=== PATIENT | female | born 1945 | race Caucasian/White ===

== ENCOUNTER 2016-11-27 08:04 | Observation (INO) | payer OTHER ==
[~2016-11-27] VITALS: Ht 152.4 cm; Wt 91.8 kg
[~2016-11-27 08:04] MED LIST: ACARBOSE50 MG; ACARBOSE50 MG PO; ASPIRIN325 MG PO; CARVEDILOL25 MG; CARVEDILOL25 MG PO; CIPRO500 MG PO; COREG25 M1 PO; DAILY VALUE1 EACH PO; FEXOFENADINE H180 MG PO; FUROSEMIDE40 MG; FUROSEMIDE40 MG PO; GLIPIZIDE10 MG; GLUCOTROL10 MG PO; LEVEMIR FL100 UNIT/1 SC; LEVOTHYROXINE150 MCG PO; LEVOTHYROXINE175 MCG PO; LISINOPRIL20 MG PO; MELOXICAM15 MG PO; METFORMIN HCL1000 MG PO; METFORMIN HCL500 MG PO; MIRALAX255 GM PO; NITROSTAT0.4 MG; NITROSTAT0.4 MG SL; OMEPRAZOLE20 MG PO; PLAVIX75 MG PO; PRAVASTATIN SOD40 MG PO; PRAVASTATIN SOD80 MG; PRECOSE50 MG PO; PROBIOTIC1 EAC2 PO; SERTRALINE HCL100 MG PO; TYLENOL WITH C1 EACH PO; ZESTRIL30 MG PO; ZOLOFT100 MG PO
[2016-11-27 08:58] LABS: EOSINOPHIL COUNT 0.1 K/uL (0-0.3); HEMATOCRIT 35.5 % (36.0-46.0); IMMATURE GRANULOCYTE (%) 0.3 % (0.0-0.7); INSTRUMENT ABS NEUTROPHIL CT 3.8 K/uL; LYMPHOCYTE COUNT 1.9 K/uL (1.0-2.8); MCHC 32.1 G/DL (30.0-36.0); MCV 84.1 FL (83-99); MEAN PLAT.VOLUME 10.8 uM^3 (9.5-12.4); MONOCYTE (%) 10.7 % (3-12); MONOCYTE COUNT 0.7 K/uL (0-0.8); NEUTROPHIL COUNT 3.8 K/uL (1.8-6.4); PLATELET COUNT 173 K/uL (156-360); RBC DIS.WIDTH-CV 12.9 % (11.8-14.6); RBC DIS.WIDTH-SD 38.9 % (39-53); RED BLOOD COUNT 4.22 M/uL (3.80-5.20); WHITE BLOOD COUNT 6.6 K/uL (4.1-10.2)
[2016-11-27 09:06] LABS: CHLORIDE 105 mEq/L (99-109); POTASSIUM 4.2 mEq/L (3.7-5.4); SODIUM 140 mEq/L (136-147)
[2016-11-27 09:08] LABS: GLUCOSE 183 mg/dL (70-99)
[2016-11-27 09:09] LABS: ANION GAP 11 MEQ/L (2-14)
[2016-11-27 09:10] LABS: TOTAL BILIRUBIN 0.4 mg/dL (0.0-1.0)
[2016-11-27 09:11] LABS: ALKALINE PHOSPHATASE 101 IU/L (3-129)
[2016-11-27 09:12] LABS: GFR ESTIMATE (CALCULATED) 58 mL/min/
[2016-11-27 09:13] LABS: UREA NITROGEN (BUN) 18 mg/dL (9-23)
[2016-11-27 10:18] LABS: ADD MIUA? NO; BILIRUBIN NEGATIVE; BLOOD NEGATIVE; COLOR YELLOW ((YELLOW)); GLUCOSE (STRIP) NEGATIVE; KETONES NEGATIVE; LEUKOCYTES NEGATIVE; NITRITE NEGATIVE; PROTEIN (STRIP) NEGATIVE; UROBILINOGEN 0.2 MG/DL (0.2-1.0)
[2016-11-27 11:23] LABS: UCUL ADDED? NO
[2016-11-27] MEDS ORDERED: GLUCOTROL XL10 MG PO (12:54)
[2016-11-27] MEDS ORDERED: TRULICITY0.75 MG/0. SC (12:58)
[2016-11-27] MEDS ORDERED: LEVEMIR FL100 UNIT/1 SC ×2 (12:58)
[2016-11-27] MEDS ORDERED: ZITHROMAX250 MG PO (12:59)
[2016-11-27] MEDS ORDERED: XYLOCAINE VISC100 ML PO (13:01)
[2016-11-27 13:37] LABS: Estimated Average Glucose 186 mg/dL (70-123); HDL CHOLESTEROL 44 MG/DL (Desirable>=50); HEMOGLOBIN A1c (GLYCOHEMOGLOB) 8.1 % HGB (Below 5.7); LDL CHOLESTEROL 92 mg/dL (Desirable<100); NON-HDL CHOLESTEROL 121 mg/dL (Desirable<160); TOTAL CHOLESTEROL 165 mg/dL (Desirable<200); TRIGLYCERIDES 145 MG/DL (Normal: <150)
[2016-11-27 14:32] VITALS: BP 179/81
[2016-11-27 17:48] LABS: POINT-OF-CARE METER ID UU13113700
[2016-11-27 20:00] VITALS: BP 145/69
[2016-11-27 21:28] LABS: POINT-OF-CARE METER ID UU13113831
[2016-11-27 23:06] VITALS: BP 140/92
[2016-11-28 03:25] VITALS: BP 129/60
[2016-11-28 06:09] LABS: HEMATOCRIT 35.9 % (36.0-46.0); MCH 27.1 PG (29.0-34.0); MCHC 31.8 G/DL (30.0-36.0); MCV 85.3 FL (83-99); MEAN PLAT.VOLUME 11.4 uM^3 (9.5-12.4); NRBC (%) 0.3 /100 WBC (0-0); PLATELET COUNT 191 K/uL (156-360); RBC DIS.WIDTH-CV 12.8 % (11.8-14.6); RBC DIS.WIDTH-SD 39.5 % (39-53); RED BLOOD COUNT 4.21 M/uL (3.80-5.20); WHITE BLOOD COUNT 5.9 K/uL (4.1-10.2)
[2016-11-28 06:27] LABS: ALKALINE PHOSPHATASE 88 IU/L (3-129); ANION GAP 9 MEQ/L (2-14); CHLORIDE 99 MEQ/L (99-109); GFR ESTIMATE (CALCULATED) 58 mL/min/; GLUCOSE 176 mg/dL (70-99); POTASSIUM 4.2 MEQ/L (3.7-5.4); SAMPLE HEMOLYSIS CHECK 0; SAMPLE ICTERIC CHECK 0; SAMPLE LIPEMIA CHECK 0; SODIUM 137 MEQ/L (136-147); TOTAL BILIRUBIN 0.4 MG/DL (0.0-1.0); UREA NITROGEN (BUN) 20 mg/dL (9-23)
[2016-11-28 06:31] LABS: POINT-OF-CARE METER ID UU14162513
[2016-11-28 07:04] VITALS: BP 157/67
[2016-11-28 11:06] VITALS: BP 154/67
[2016-11-28 12:34] LABS: POINT-OF-CARE METER ID UU13113700
[2016-11-28 15:12] VITALS: BP 145/62
[2016-11-28 17:26] LABS: POINT-OF-CARE METER ID UU14162513
== END 2016-11-28 18:19 | disposition home or self-care (01) ==
LOC: EME 08:04 → 5WEST 12:30 → EDOF 12:30 → ENRESERV 12:35 → 5WEST 14:22
PROVIDERS: Emergency Medicine; Hospitalist
DX: G45.4 Transient global amnesia (principal); I65.23 Occlusion and stenosis of bilateral carotid arteries; E11.9 Type 2 diabetes mellitus without complications; I10 Essential (primary) hypertension; E78.5 Hyperlipidemia, unspecified; I42.0 Dilated cardiomyopathy; I44.7 Left bundle-branch block, unspecified; I35.0 Nonrheumatic aortic (valve) stenosis; Z95.810 Presence of automatic (implantable) cardiac defibrillator; Z96.653 Presence of artificial knee joint, bilateral; E03.9 Hypothyroidism, unspecified; Z79.84 Long term (current) use of oral hypoglycemic drugs; Z88.0 Allergy status to penicillin; Z88.5 Allergy status to narcotic agent
CPT/HCPCS: 70450; 70498; 80053; 80061; 81003; 82948; 83036; 85025; 85027; 93005; 93306; 93880; G0378; J1650; J1815

== ENCOUNTER 2016-12-02 22:26 | Inpatient (IN) | payer OTHER ==
[~2016-12-02] VITALS: Ht 152.4 cm; Wt 86.3 kg
[~2016-12-02 22:26] MED LIST changes: +GLUCOTROL XL10 MG PO; +TRULICITY0.75 MG/0. SC; +XYLOCAINE VISC100 ML PO; +ZITHROMAX250 MG PO
[2016-12-03 13:46] LABS: POINT-OF-CARE METER ID UU14174212
[2016-12-03 13:54] VITALS: BP 178/78
[2016-12-03 14:17] VITALS: BP 178/78
[2016-12-03 18:40] LABS: POINT-OF-CARE METER ID UU13113675
[2016-12-03 20:20] VITALS: BP 120/74
[2016-12-03 20:46] LABS: POINT-OF-CARE METER ID UU14174217
[2016-12-03 21:00] VITALS: BP 136/48
[2016-12-03 21:40] LABS: METH RESISTANT S AUREUS PCR NEGATIVE (NEGATIVE)
[2016-12-03 21:41] LABS: PROBE CHECK PASS; SPECIMEN PROCESSING CONTROL PASS
[2016-12-03 22:00] VITALS: BP 128/76
[2016-12-03 23:00] VITALS: BP 102/38
[2016-12-04] VITALS (23 sets, daily range): BP systolic 90–191; BP diastolic 52–100
[2016-12-04 08:17] LABS: POINT-OF-CARE METER ID UU14174217
[2016-12-04] MEDS ORDERED: HYDROCODON-ACE1 EAC7 PO (08:38)
[2016-12-04 12:42] LABS: POINT-OF-CARE METER ID UU14174217
[2016-12-04 17:36] LABS: POINT-OF-CARE METER ID UU14314082
[2016-12-04 23:46] LABS: POINT-OF-CARE METER ID UU14162636
[2016-12-05 00:30] VITALS: BP 144/55
[2016-12-05 02:00] VITALS: BP 143/48
[2016-12-05 04:00] VITALS: BP 129/46
[2016-12-05 08:00] VITALS: BP 145/75
[2016-12-05 08:34] LABS: POINT-OF-CARE METER ID UU13113748
[2016-12-05 13:00] VITALS: BP 137/55
== END 2016-12-05 16:55 | disposition home or self-care (01) | DRG 39 ==
LOC: ENRESERV 22:26 → SDC 12-03 09:08 → EDSTATUS 12-03 09:09 → 2SOUTH 12-03 09:09 → 4WEST 12-03 13:05 → 2SOUTH 12-03 13:05 → ENRESERV 12-03 18:20 → 4WEST 12-03 20:01 → ENRESERV 12-04 05:53 → CANRESERV 12-04 05:53 → 4WEST 12-04 16:32
PROVIDERS: Surgery
PROC: 03CK0ZZ Extirpation of Matter from Right Internal Carotid Artery, Open Approach (ICD-10-PCS; principal; 2016-12-03)
DX: I65.23 Occlusion and stenosis of bilateral carotid arteries (principal); E11.9 Type 2 diabetes mellitus without complications; I10 Essential (primary) hypertension; E78.5 Hyperlipidemia, unspecified; I25.5 Ischemic cardiomyopathy; E03.9 Hypothyroidism, unspecified; Z95.810 Presence of automatic (implantable) cardiac defibrillator; Z86.73 Personal history of transient ischemic attack (TIA), and cerebral infarction without residual deficits; Z83.3 Family history of diabetes mellitus; Z80.7 Family history of other malignant neoplasms of lymphoid, hematopoietic and related tissues
CPT/HCPCS: 70450; 82948; 87641; 93005; 94010; 94760; 94799; 99202; J0131; J0360; J0690; J1170; J1644; J1650; J1815; J2405; J2720; J2765; J2795; J3010; J7120

== ENCOUNTER 2016-12-11 10:35 | Emergency (ER) | payer OTHER ==
[~2016-12-11] VITALS: Ht 152.4 cm; Wt 89.4 kg
[~2016-12-11 10:35] MED LIST changes: +HYDROCODON-ACE1 EAC7 PO
[2016-12-11 11:23] LABS: ADD MIUA? NO; BILIRUBIN NEGATIVE; BLOOD NEGATIVE; COLOR STRAW ((YELLOW)); GLUCOSE (STRIP) NEGATIVE; KETONES NEGATIVE; LEUKOCYTES NEGATIVE; NITRITE NEGATIVE; PROTEIN (STRIP) NEGATIVE; SPECIFIC GRAVITY 1.006 (1.000-1.030); UCUL ADDED? NO; UROBILINOGEN 0.2 MG/DL (0.2-1.0)
[2016-12-11] MEDS ORDERED: TRESIBA FL200 UNIT/1 SC (12:12)
[2016-12-11] MEDS ORDERED: TRULICITY0.75 MG/0. SC (12:13)
[2016-12-11] MEDS ORDERED: TRESIBA FL100 UNIT/1 SC (12:13)
[2016-12-11 12:28] LABS: EOSINOPHIL (%) 8.3 % (0-5); EOSINOPHIL COUNT 0.8 K/uL (0-0.3); HEMATOCRIT 39.6 % (36.0-46.0); IMMATURE GRANULOCYTE (%) 0.7 % (0.0-0.7); IMMATURE GRANULOCYTE COUNT 0.1 K/uL; INSTRUMENT ABS NEUTROPHIL CT 5.1 K/uL; LYMPHOCYTE COUNT 2.5 K/uL (1.0-2.8); MCHC 32.1 G/DL (30.0-36.0); MCV 84.3 FL (83-99); MEAN PLAT.VOLUME 10.7 uM^3 (9.5-12.4); MONOCYTE (%) 8.9 % (3-12); MONOCYTE COUNT 0.8 K/uL (0-0.8); NEUTROPHIL (%) 54.9 % (45-76); NEUTROPHIL COUNT 5.1 K/uL (1.8-6.4); PLATELET COUNT 242 K/uL (156-360); RBC DIS.WIDTH-CV 13.3 % (11.8-14.6); RBC DIS.WIDTH-SD 41.1 % (39-53); WHITE BLOOD COUNT 9.2 K/uL (4.1-10.2)
[2016-12-11 12:36] LABS: CHLORIDE 100 mEq/L (99-109); POTASSIUM 4.2 mEq/L (3.7-5.4); SODIUM 138 mEq/L (136-147)
[2016-12-11 12:37] LABS: GLUCOSE 146 mg/dL (70-99)
[2016-12-11 12:39] LABS: ANION GAP 14 MEQ/L (2-14)
[2016-12-11 12:41] LABS: GFR ESTIMATE (CALCULATED) 52 mL/min/
[2016-12-11 12:42] LABS: UREA NITROGEN (BUN) 24 mg/dL (9-23)
[2016-12-11 14:37] VITALS: BP 148/69
== END 2016-12-11 14:59 | disposition home or self-care (01) ==
LOC: EME 10:35
PROVIDERS: Emergency Medicine
DX: R53.1 Weakness (principal); E11.9 Type 2 diabetes mellitus without complications; I50.9 Heart failure, unspecified; Z79.84 Long term (current) use of oral hypoglycemic drugs; Z98.890 Other specified postprocedural states; Z86.73 Personal history of transient ischemic attack (TIA), and cerebral infarction without residual deficits; E78.5 Hyperlipidemia, unspecified; I10 Essential (primary) hypertension; E66.9 Obesity, unspecified; Z95.0 Presence of cardiac pacemaker; Z96.653 Presence of artificial knee joint, bilateral; Z79.82 Long term (current) use of aspirin; Z88.0 Allergy status to penicillin
CPT/HCPCS: 70450; 71010; 80048; 81003; 85025; 93005; 99281; 99285

== ENCOUNTER 2016-12-15 08:27 | Observation (INO) | payer OTHER ==
[~2016-12-15] VITALS: Ht 152.4 cm; Wt 87.8 kg
[~2016-12-15 08:27] MED LIST changes: +TRESIBA FL100 UNIT/1 SC; +TRESIBA FL200 UNIT/1 SC
[2016-12-15 09:16] LABS: HEMATOCRIT 40.1 % (36.0-46.0); MCH 26.9 PG (29.0-34.0); MCHC 32.2 G/DL (30.0-36.0); MCV 83.5 FL (83-99); PLATELET COUNT 272 K/uL (156-360); RBC DIS.WIDTH-CV 13.5 % (11.8-14.6); RBC DIS.WIDTH-SD 41.1 % (39-53); WHITE BLOOD COUNT 13.9 K/uL (4.1-10.2)
[2016-12-15 09:24] LABS: CHLORIDE 101 mEq/L (99-109); POTASSIUM 4.1 mEq/L (3.7-5.4); SODIUM 134 mEq/L (136-147)
[2016-12-15 09:25] LABS: GLUCOSE 177 mg/dL (70-99)
[2016-12-15 09:27] LABS: ANION GAP 11 MEQ/L (2-14)
[2016-12-15 09:29] LABS: GFR ESTIMATE (CALCULATED) 39 mL/min/
[2016-12-15 09:30] LABS: UREA NITROGEN (BUN) 36 mg/dL (9-23)
[2016-12-15 10:02] LABS: TOTAL BILIRUBIN 0.3 mg/dL (0.0-1.0)
[2016-12-15 10:03] LABS: ALKALINE PHOSPHATASE 112 IU/L (3-129)
[2016-12-15 10:05] LABS: DIRECT BILIRUBIN 0.2 mg/dL (0.0-0.3)
[2016-12-15 10:06] LABS: LIPASE 52 U/L (1.0-51.0)
[2016-12-15 10:07] LABS: ADD MIUA? NO; BILIRUBIN NEGATIVE; BLOOD NEGATIVE; COLOR STRAW ((YELLOW)); GLUCOSE (STRIP) NEGATIVE; KETONES NEGATIVE; LEUKOCYTES NEGATIVE; NITRITE NEGATIVE; PROTEIN (STRIP) NEGATIVE; SPECIFIC GRAVITY 1.008 (1.000-1.030); UCUL ADDED? NO; UROBILINOGEN 0.2 MG/DL (0.2-1.0)
[2016-12-15 10:12] LABS: TROP-I INTERPRETATION NEGATIVE; TROPONIN-I 0.02 ng/mL (0.0-0.30)
[2016-12-15] MEDS ORDERED: GLUCOPHAGE XR,500 MG PO (13:46)
[2016-12-15] MEDS ORDERED: ERGOCALCIF50000 UNIT PO (13:47)
[2016-12-15] MEDS ORDERED: TRESIBA FL200 UNIT/1 SC (13:49)
[2016-12-15] MEDS ORDERED: TRULICITY0.75 MG/0. SC (13:49)
[2016-12-15] MEDS ORDERED: XTAMPZA ER9 MG PO (13:49)
[2016-12-15] MEDS ORDERED: ROXICODONE5 MG PO (13:50)
[2016-12-15] MEDS ORDERED: CYANOCOBALAM1000 MCG PO (13:50)
[2016-12-15 15:23] LABS: Estimated Average Glucose 169 mg/dL (70-123); HEMOGLOBIN A1c (GLYCOHEMOGLOB) 7.5 % HGB (Below 5.7)
[2016-12-15 16:59] LABS: POINT-OF-CARE METER ID UU13113700
[2016-12-15 19:45] VITALS: BP 153/65
[2016-12-15 21:41] LABS: POINT-OF-CARE METER ID UU14162513
[2016-12-15 22:09] LABS: TROP-I INTERPRETATION NEGATIVE; TROPONIN-I 0.02 ng/mL (0.0-0.30)
[2016-12-15 23:45] VITALS: BP 150/98
[2016-12-16 04:07] VITALS: BP 128/60
[2016-12-16 05:42] LABS: HEMATOCRIT 36.8 % (36.0-46.0); MCH 28.3 PG (29.0-34.0); MCHC 32.6 G/DL (30.0-36.0); MCV 86.8 FL (83-99); PLATELET COUNT 207 K/uL (156-360); RBC DIS.WIDTH-CV 13.7 % (11.8-14.6); RBC DIS.WIDTH-SD 42.9 % (39-53); RED BLOOD COUNT 4.24 M/uL (3.80-5.20); WHITE BLOOD COUNT 9.4 K/uL (4.1-10.2)
[2016-12-16 06:04] LABS: ANION GAP 7 MEQ/L (2-14); CHLORIDE 106 MEQ/L (99-109); GFR ESTIMATE (CALCULATED) 52 mL/min/; GLUCOSE 151 mg/dL (70-99); POTASSIUM 4.2 MEQ/L (3.7-5.4); SAMPLE HEMOLYSIS CHECK 0; SAMPLE ICTERIC CHECK 0; SAMPLE LIPEMIA CHECK 0; UREA NITROGEN (BUN) 26 mg/dL (9-23)
[2016-12-16 06:07] LABS: SODIUM 141 MEQ/L (136-147)
[2016-12-16 07:02] VITALS: BP 137/75
[2016-12-16 11:00] VITALS: BP 129/59
[2016-12-16 11:55] LABS: POINT-OF-CARE METER ID UU13113831
== END 2016-12-16 12:56 | disposition home or self-care (01) ==
LOC: EME 08:27 → EDOF 13:31 → 5WEST 13:31 → ENRESERV 13:33 → 5WEST 15:22
PROVIDERS: Emergency Medicine; Internal Medicine
DX: E86.0 Dehydration (principal); N17.9 Acute kidney failure, unspecified; R19.7 Diarrhea, unspecified; E27.8 Other specified disorders of adrenal gland; D72.829 Elevated white blood cell count, unspecified; Z98.890 Other specified postprocedural states; I10 Essential (primary) hypertension; E11.9 Type 2 diabetes mellitus without complications; E78.5 Hyperlipidemia, unspecified; I25.5 Ischemic cardiomyopathy; Z86.73 Personal history of transient ischemic attack (TIA), and cerebral infarction without residual deficits; E03.9 Hypothyroidism, unspecified; Z95.810 Presence of automatic (implantable) cardiac defibrillator; Z96.653 Presence of artificial knee joint, bilateral; Z90.710 Acquired absence of both cervix and uterus; I25.10 Atherosclerotic heart disease of native coronary artery without angina pectoris; Z79.4 Long term (current) use of insulin; Z79.82 Long term (current) use of aspirin; Z88.0 Allergy status to penicillin; Z88.5 Allergy status to narcotic agent
CPT/HCPCS: 70450; 71020; 74177; 80048; 80076; 81003; 82533 91; 82948; 83036; 83690; 84443; 84484; 85027; 87493; 87506; 93005; 93880; 95819; G0378; J1644; J2405; J7030

== ENCOUNTER 2017-09-21 09:58 | Emergency (ER) | payer OTHER ==
[~2017-09-21] VITALS: Ht 152.4 cm; Wt 81.4 kg
[~2017-09-21 09:58] MED LIST changes: +CYANOCOBALAM1000 MCG PO; +ERGOCALCIF50000 UNIT PO; +GLUCOPHAGE XR,500 MG PO; +ROXICODONE5 MG PO; +XTAMPZA ER9 MG PO
[2017-09-21 11:18] LABS: BASOPHIL (%) 0.4 % (0-1); EOSINOPHIL (%) 3.7 % (0-5); EOSINOPHIL COUNT 0.4 K/uL (0-0.3); HEMATOCRIT 39.1 % (36.0-46.0); HEMOGLOBIN 13.3 G/DL (11.9-15.5); IMMATURE GRANULOCYTE (%) 0.2 % (0.0-0.7); LYMPHOCYTE COUNT 3.3 K/uL (1.0-2.8); MCH 29.5 PG (29.0-34.0); MCV 86.7 FL (83-99); MONOCYTE (%) 10.5 % (3-12); MONOCYTE COUNT 1.1 K/uL (0-0.8); NEUTROPHIL (%) 55.2 % (45-76); PLATELET COUNT 252 K/uL (156-360); RBC DIS.WIDTH-CV 12.2 % (11.8-14.6); RBC DIS.WIDTH-SD 39.2 % (39-53); RED BLOOD COUNT 4.51 M/uL (3.80-5.20); WHITE BLOOD COUNT 10.8 K/uL (4.1-10.2)
[2017-09-21 11:29] LABS: ALBUMIN 3.9 g/dL (3.2-4.8)
[2017-09-21 11:30] LABS: CHLORIDE 106 mEq/L (99-109); POTASSIUM 4.5 mEq/L (3.7-5.4); SODIUM 136 mEq/L (136-147)
[2017-09-21 11:32] LABS: GLUCOSE 107 mg/dL (70-99); TOTAL PROTEIN 7.4 g/dL (6.4-8.3)
[2017-09-21 11:34] LABS: TOTAL BILIRUBIN 0.4 mg/dL (0.0-1.0)
[2017-09-21 11:35] LABS: ALKALINE PHOSPHATASE 119 IU/L (3-129)
[2017-09-21 11:36] LABS: GFR ESTIMATE (CALCULATED) 58 mL/min/
[2017-09-21 11:37] LABS: AST (GOT) 19 IU/L (2-34); UREA NITROGEN (BUN) 34 mg/dL (9-23)
[2017-09-21 11:39] LABS: ALT (GPT) 17 IU/L (3-49)
[2017-09-21 12:15] LABS: APPEARANCE CLEAR ((CLEAR)); BILIRUBIN NEGATIVE; BLOOD NEGATIVE; COLOR YELLOW ((YELLOW)); GLUCOSE (STRIP) NEGATIVE; KETONES NEGATIVE; LEUKOCYTES NEGATIVE; NITRITE POSITIVE; PROTEIN (STRIP) NEGATIVE; SPECIFIC GRAVITY 1.009 (1.000-1.030); UROBILINOGEN 0.2 MG/DL (0.2-1.0)
[2017-09-21 12:23] LABS: BACTERIA RARE /HPF; EPITHELIAL CELLS RARE /HPF; MUCUS NONE SEEN /LPF; RED BLOOD CELLS 0-5 /HPF (0-5); WHITE BLOOD CELLS 0-5 /HPF (0-5)
[2017-09-21] MEDS ORDERED: BACTRIM,SEPT1 TABLET PO (14:17)
[2017-09-21 14:38] VITALS: BP 149/72
== END 2017-09-21 14:39 | disposition home or self-care (01) ==
LOC: EME 09:58
PROVIDERS: Emergency Medicine
DX: N39.0 Urinary tract infection, site not specified (principal); R53.1 Weakness; M79.601 Pain in right arm; R42 Dizziness and giddiness; Z95.0 Presence of cardiac pacemaker; I10 Essential (primary) hypertension; E11.9 Type 2 diabetes mellitus without complications; Z79.4 Long term (current) use of insulin; Z79.82 Long term (current) use of aspirin; Z88.0 Allergy status to penicillin
CPT/HCPCS: 70450; 71045; 80053; 81003; 85025; 93005; 99281; 99283